=== PATIENT | female | born 1985 | race Two or more races ===

== ENCOUNTER 2017-11-29 15:29 | Outpatient (CLI) | payer OTHER | END 2017-11-29 15:33 | disposition home or self-care (01) | LOC: LAB 15:29 | DX: R50.9 Fever, unspecified (principal) ==

== ENCOUNTER → 2017-11-29 | Outpatient (CLI) | payer OTHER ==
[~2017-11-29] MED LIST: DIPROLENE 0.05%30 ML TP; DIPROLENE AF 0.50 GM TP; DIPROSONE CR.45 GM TP
== END | disposition home or self-care (01) ==
LOC: PPHC 14:28
DX: B34.9 Viral infection, unspecified (principal)

== ENCOUNTER 2018-05-04 06:34 | Outpatient (CLI) | payer OTHER | END 2018-05-04 07:32 | disposition home or self-care (01) | LOC: LAB 06:34 | DX: N91.2 Amenorrhea, unspecified (principal); E03.8 Other specified hypothyroidism; E78.2 Mixed hyperlipidemia; D63.8 Anemia in other chronic diseases classified elsewhere; N30.80 Other cystitis without hematuria ==

== ENCOUNTER 2018-06-09 10:15 | Outpatient (CLI) | payer OTHER | END 2018-06-10 10:38 | disposition home or self-care (01) | LOC: RX STUDY 10:15 | DX: N80.8 Other endometriosis (principal) ==

== ENCOUNTER 2018-07-29 13:33 | Outpatient (CLI) | payer OTHER | END 2018-07-29 16:32 | disposition home or self-care (01) | LOC: MAMO-SONO 13:33 | DX: N64.4 Mastodynia (principal); Z12.31 Encounter for screening mammogram for malignant neoplasm of breast ==

== ENCOUNTER → 2018-08-09 09:00 | Outpatient (CLI) | payer OTHER | END | disposition home or self-care (01) | LOC: LAB 09:00 | DX: N97.0 Female infertility associated with anovulation (principal) ==

== ENCOUNTER 2018-12-26 15:20 | Outpatient (CLI) | payer OTHER | END 2018-12-26 15:32 | disposition home or self-care (01) | LOC: LAB 15:20 | DX: Z11.3 Encounter for screening for infections with a predominantly sexual mode of transmission (principal) ==

== ENCOUNTER 2019-02-17 14:36 | Outpatient (CLI) | payer OTHER | END 2019-02-17 14:48 | disposition home or self-care (01) | LOC: LAB 14:36 | DX: J02.8 Acute pharyngitis due to other specified organisms (principal) ==

== ENCOUNTER 2020-02-07 06:52 | Outpatient (CLI) | payer OTHER | END 2020-02-07 13:35 | disposition home or self-care (01) | LOC: LAB 06:52 | DX: E16.1 Other hypoglycemia (principal); N39.0 Urinary tract infection, site not specified; E78.2 Mixed hyperlipidemia; E56.8 Deficiency of other vitamins; E03.8 Other specified hypothyroidism; R97.1 Elevated cancer antigen 125 [CA 125]; R53.1 Weakness; E66.01 Morbid (severe) obesity due to excess calories; Z11.3 Encounter for screening for infections with a predominantly sexual mode of transmission ==

== ENCOUNTER 2020-05-07 17:32 | Outpatient (CLI) | payer OTHER | END 2020-05-07 18:15 | disposition home or self-care (01) | LOC: LAB 17:32 | PROVIDERS: ATTEND Obstetrics & Gynecology | DX: Z20.828 Contact with and (suspected) exposure to other viral communicable diseases (principal); Z03.818 Encounter for observation for suspected exposure to other biological agents ruled out ==

== ENCOUNTER 2020-06-13 08:00 | Outpatient (CLI) | payer OTHER | END 2020-06-13 15:44 | disposition home or self-care (01) | LOC: PPH VACUNA 08:00 | DX: Z23 Encounter for immunization (principal) ==

== ENCOUNTER 2020-11-05 06:55 | Outpatient (CLI) | payer OTHER | END 2020-11-05 07:02 | disposition home or self-care (01) | LOC: LAB 06:55 | PROVIDERS: ATTEND Internal Medicine Cardiovascular Disease | DX: D68.8 Other specified coagulation defects (principal); E03.8 Other specified hypothyroidism; E11.9 Type 2 diabetes mellitus without complications; I10 Essential (primary) hypertension; E78.2 Mixed hyperlipidemia; B20 Human immunodeficiency virus [HIV] disease; E55.9 Vitamin D deficiency, unspecified; Z11.4 Encounter for screening for human immunodeficiency virus [HIV]; J44.9 Chronic obstructive pulmonary disease, unspecified ==

== ENCOUNTER 2020-11-19 07:35 | Outpatient (CLI) | payer OTHER | END 2020-11-19 07:40 | disposition home or self-care (01) | LOC: LAB 07:35 | PROVIDERS: ATTEND Internal Medicine Cardiovascular Disease | DX: U07.1 COVID-19 (principal); R05 Cough; R06.2 Wheezing; R50.9 Fever, unspecified ==

== ENCOUNTER 2021-06-24 08:00 | Outpatient (CLI) | payer OTHER | END 2021-06-24 08:30 | disposition home or self-care (01) | LOC: PPH VACUNA 08:00 | PROVIDERS: ATTEND Emergency Medicine Pediatric Emergency Medicine | DX: Z23 Encounter for immunization (principal) ==

== ENCOUNTER 2021-10-01 08:00 | Outpatient (CLI) | payer OTHER | END 2021-10-01 08:30 | disposition home or self-care (01) | LOC: PPH VACUNA 08:00 | PROVIDERS: ATTEND Emergency Medicine Pediatric Emergency Medicine | DX: Z23 Encounter for immunization (principal) ==

== ENCOUNTER 2022-04-07 10:20 | Outpatient (CLI) | payer OTHER | END 2022-04-07 10:28 | disposition home or self-care (01) | LOC: RAD 10:20 | PROVIDERS: ATTEND Internal Medicine Cardiovascular Disease | DX: J44.9 Chronic obstructive pulmonary disease, unspecified (principal) ==

== ENCOUNTER → 2022-06-24 | Outpatient (CLI) | payer OTHER | END | disposition home or self-care (01) | LOC: MRI 09:49 | DX: M25.562 Pain in left knee (principal) | CPT/HCPCS: 73718 ==

== ENCOUNTER → 2022-07-03 | Outpatient (CLI) | payer OTHER | END | disposition home or self-care (01) | LOC: PPH VACUNA 14:10 | PROVIDERS: ATTEND Emergency Medicine Pediatric Emergency Medicine | DX: Z23 Encounter for immunization (principal) ==

== ENCOUNTER 2022-09-02 15:13 | Outpatient (CLI) | payer OTHER | END 2022-09-02 15:16 | disposition home or self-care (01) | LOC: LAB 15:13 | PROVIDERS: ATTEND Orthopaedic Surgery | DX: E55.9 Vitamin D deficiency, unspecified (principal); M85.9 Disorder of bone density and structure, unspecified; E56.1 Deficiency of vitamin K ==

== ENCOUNTER 2022-10-01 08:39 | Outpatient (CLI) | payer OTHER | END 2022-10-01 08:40 | disposition home or self-care (01) | LOC: NUCLEAR 08:39 | PROVIDERS: ATTEND Orthopaedic Surgery | DX: M81.0 Age-related osteoporosis without current pathological fracture (principal) ==

== ENCOUNTER → 2023-02-28 | Emergency (ER) | payer OTHER ==
[~2023-02-28] VITALS: Ht 177.8 cm; Wt 68.0 kg
== END | disposition home or self-care (01) ==
LOC: ER 09:53
DX: K52.89 Other specified noninfective gastroenteritis and colitis (principal)

== ENCOUNTER 2023-06-18 02:30 | Outpatient (CLI) | payer OTHER | END 2023-06-18 02:40 | disposition home or self-care (01) | LOC: PPH VACUNA 02:30 | PROVIDERS: ATTEND Emergency Medicine Pediatric Emergency Medicine | DX: Z23 Encounter for immunization (principal) | CPT/HCPCS: 90686; G0008 ==

== ENCOUNTER 2023-07-21 07:20 | Outpatient (CLI) | payer OTHER | END 2023-07-21 08:48 | disposition home or self-care (01) | LOC: MAMO-SONO 07:20 | PROVIDERS: ATTEND Surgery | DX: Z12.31 Encounter for screening mammogram for malignant neoplasm of breast (principal) ==

== ENCOUNTER 2023-11-12 13:53 | Emergency (ER) | payer OTHER ==
[~2023-11-12] VITALS: Ht 177.8 cm; Wt 77.1 kg
== END 2023-11-12 15:15 | disposition home or self-care (01) ==
LOC: ER 13:53
DX: F41.9 Anxiety disorder, unspecified (principal)

== ENCOUNTER 2024-08-19 10:44 | Outpatient (CLI) | payer OTHER | END 2024-08-19 10:47 | disposition home or self-care (01) | LOC: RAD 10:44 | PROVIDERS: ATTEND General Practice | DX: S99.922A Unspecified injury of left foot, initial encounter (principal) ==

== ENCOUNTER 2025-05-03 06:57 | Outpatient (CLI) | payer OTHER ==
[2025-05-03 07:50] LABS: BASO % 0.2 % (0.1-1.2); EOS # 0.11 (0.04-0.54); EOS % 1.4 % (0.7-7.0); LYMPH # 1.65 (1.18-3.74); LYMPH % 20.4 % (19.3-53.1); MEAN PLATELET VOLUME 9.90 fl (9.4-12.4); MONO # 0.44 (0.24-0.82); MONO % 5.4 % (4.7-12.5); NEUT # 5.81 (1.56-6.13); NEUT % 72.0 % (34.0-71.1); RED CELL DISTRIBUTION WIDTH 12.8 % (11.6-14.4)
[2025-05-03 08:30] LABS: ALT/SGPT 21.0 U/L (12-78); AST/SGOT 10.0 U/L (15-37); BILIRUBIN TOTAL 0.37 mg/dL (0.3-1.2); BUN CREA RATIO 15.0 (7.0-25.0); CHOL HDL RATIO 2.5 (0-5.0); CREATININE SERUM 0.66 mg/dL (0.55-1.02); GFR 98.21; GLOBULINA 3.0 G/DL (2.4-3.5); GLUCOSE FASTING 102.0 mg/dL (65-100); HDL 55.0 mg/dl (40-60); LDL 74.0 mg/dl (0-130); OSMOLALITY SERUM 282.0 MOSM/KG (275-295); TSH 2.76 uIU/mL (0.358-3.74); VLDL 10.0 (0-39)
[2025-05-03 11:37] LABS: URINE BACTERIA 634.8 uL (0.0-1933); URINE EPITHELIAL CELLS 28.5 uL (0.0-38.8); URINE RBC 141.0 uL (0.0-20.8); URINE WBC 8.2 uL (0.0-23.2)
[2025-05-03 11:43] LABS: URINE APPEARANCE Clear; URINE BILIRRUBIN Negative (NEGATIVE); URINE BLOOD Moderate; URINE COLOR Yellow; URINE GLUCOSE Negative (NEGATIVE); URINE KETONE Negative (NEGATIVE); URINE LEUKOCYTE Trace; URINE NITRATE Negative; URINE PROTEIN 30 (NEGATIVE); URINE UROBILINOGEN 0.2 E.U./dl
[2025-05-03 11:58] LABS: URINE CAST 0.00 uL (0.0-1.40)
== END 2025-05-03 07:00 | disposition home or self-care (01) ==
LOC: LAB 06:57
PROVIDERS: ATTEND Obstetrics & Gynecology Gynecology
DX: E03.8 Other specified hypothyroidism (principal); N30.90 Cystitis, unspecified without hematuria; E78.00 Pure hypercholesterolemia, unspecified; R73.9 Hyperglycemia, unspecified; K92.1 Melena; Z12.11 Encounter for screening for malignant neoplasm of colon; E55.9 Vitamin D deficiency, unspecified; N76.0 Acute vaginitis

== ENCOUNTER 2025-05-03 07:18 | Outpatient (CLI) | payer OTHER | END 2025-05-03 07:19 | disposition home or self-care (01) | LOC: MAMO-SONO 07:18 | PROVIDERS: ATTEND Obstetrics & Gynecology Gynecology | DX: N64.4 Mastodynia (principal); N63.0 Unspecified lump in unspecified breast; N60.11 Diffuse cystic mastopathy of right breast; Z12.31 Encounter for screening mammogram for malignant neoplasm of breast ==

== ENCOUNTER 2025-06-29 06:17 | Outpatient (CLI) | payer OTHER ==
[2025-06-29 07:51] LABS: BASO % 0.1 % (0.1-1.2); EOS # 0.05 (0.04-0.54); EOS % 0.5 % (0.7-7.0); LYMPH # 1.68 (1.18-3.74); LYMPH % 17.3 % (19.3-53.1); MEAN PLATELET VOLUME 10.00 fl (9.4-12.4); MONO # 0.59 (0.24-0.82); MONO % 6.1 % (4.7-12.5); NEUT # 7.36 (1.56-6.13); NEUT % 75.7 % (34.0-71.1); RED CELL DISTRIBUTION WIDTH 12.7 % (11.6-14.4)
[2025-06-29 07:56] LABS: COVID-19 AG NEGATIVE (NEGATIVE)
[2025-06-29 08:48] LABS: MYCOPLASMA PNEUMONIAE IGM REACTIVE (NO REACTIVE)
== END 2025-06-29 06:26 | disposition home or self-care (01) ==
LOC: LAB 06:17
PROVIDERS: ATTEND Internal Medicine Cardiovascular Disease
DX: J11.1 Influenza due to unidentified influenza virus with other respiratory manifestations (principal); A49.3 Mycoplasma infection, unspecified site; Z20.822 Contact with and (suspected) exposure to COVID-19